=== PATIENT | female | born 1960 | race Caucasian/White ===

== ENCOUNTER 2019-09-10 09:33 | Day surgery (SDC) | payer OTHER ==
[~2019-09-10] VITALS: Ht 162.6 cm; Wt 67.6 kg
[~2019-09-10 09:33] MED LIST: CALC500C16 PO; LEVO50TA5 PO; LIDOCAINE 2% INJ 100 MG/5 ML SDV (FOR ANES.) As Ordered ONE; MULTCAP PO; NS 1,000 ML IV ONE; PROBCAP14 PO; propofoL 500 MG/50 ML VIAL As Ordered ONE
--- NOTE | 2019-09-10 11:20 | ROOR ---
Patient Name: Cesilia Car Procedure Date: 09/10/2019 10:45 AM Date of : 1960 Age: 59 Room: [facility] Gender: Female Note Status: Finalized Procedure: Colonoscopy Indications: Screening for colorectal malignant neoplasm Providers: Ze Jimenes MD Referring MD: Madalyn Robertson NP Requesting Provider: Medicines: Monitored Anesthesia Care Complications: No immediate complications. Procedure: Pre-Anesthesia Assessment: - Prior to the procedure, a History and Physical was performed, and patient medications and allergies were reviewed. The patient is competent. The risks and benefits of the procedure and the sedation options and risks were discussed with the patient. All questions were answered and informed consent was obtained. Patient identification and proposed procedure were verified by the physician, the nurse and the anesthesiologist in the procedure room. Mental Status Examination: alert and oriented. Airway Examination: normal oropharyngeal airway and neck mobility. Respiratory Examination: clear to auscultation. CV Examination: normal. Prophylactic Antibiotics: The patient does not require prophylactic antibiotics. Prior Anticoagulants: The patient has taken no previous anticoagulant or antiplatelet agents. ASA Grade Assessment: II - A patient with mild systemic disease. After reviewing the risks and benefits, the patient was deemed in satisfactory condition to undergo the procedure. The anesthesia plan was to use monitored anesthesia care (MAC). Immediately prior to administration of medications, the patient was re-assessed for adequacy to receive sedatives. The heart rate, respiratory rate, oxygen saturations, blood pressure, adequacy of pulmonary ventilation, and response to care were monitored throughout the procedure. The physical status of the patient was re-assessed after the procedure. The Colonoscope was introduced through the anus and advanced to the terminal ileum, with identification of the appendiceal orifice and IC valve. The colonoscopy was performed without difficulty. The patient tolerated the procedure well. The quality of the bowel preparation was good. The terminal ileum, ileocecal valve, appendiceal orifice, and rectum were photographed. Scope insertion time was 2 minutes. Scope withdrawal time was 9 minutes. The total duration of the procedure was 11 minutes. Findings: The perianal and digital rectal examinations were normal. The terminal ileum contained one 10 mm diverticulum. Two sessile polyps were found in the ascending colon. The polyps were 4 to 5 mm in size. These polyps were removed with a jumbo cold forceps. Resection and retrieval were complete. Verification of patient identification for the specimen was done by the physician and nurse using the patient's name, date and medical record number. Estimated blood loss was minimal. A few small and large-mouthed diverticula were found from sigmoid to descending colon. There was no evidence of diverticular bleeding. Non-bleeding external and internal hemorrhoids were found during retroflexion. The hemorrhoids were small. Impression: - Ileal diverticulum. - Two 4 to 5 mm polyps in the ascending colon, removed with a jumbo cold forceps. Resected and retrieved. - Mild diverticulosis from sigmoid to descending colon. There was no evidence of diverticular bleeding. - Non-bleeding external and internal hemorrhoids. Recommendation: - Patient has a contact number available for emergencies. The signs and symptoms of potential delayed complications were discussed with the patient. Return to normal activities tomorrow. Written discharge instructions were provided to the patient. - High fiber diet. - Continue present medications. - Use fiber, for example Citrucel, Fibercon, Konsyl or Metamucil. - Await pathology results. - Repeat colonoscopy in 5-10 years for surveillance based on pathology results. - Telephone GI clinic for pathology results in 2 weeks. - Return to primary care physician. Ze Jimenes MD Ze Jimenes MD 09/10/2019 11:19:46 AM Electronically signed by Ze Jimenes MD Number of Addenda: 0 Note Initiated On: 09/10/2019 10:45 AM Estimated Blood Loss: Estimated blood loss was minimal.
[2019-09-10 11:36] VITALS: BP 133/79
== END 2019-09-10 11:38 | disposition home or self-care (01) ==
LOC: M OPP 09:33
PROVIDERS: ATTEND Internal Medicine Gastroenterology
DX: Z12.11 Encounter for screening for malignant neoplasm of colon (principal); K64.8 Other hemorrhoids; D12.2 Benign neoplasm of ascending colon; K57.50 Diverticulosis of both small and large intestine without perforation or abscess without bleeding; Z79.899 Other long term (current) drug therapy

== ENCOUNTER → 2023-04-19 | Outpatient (CLI) | payer OTHER ==
[~2023-04-19] MED LIST changes: -LIDOCAINE 2% INJ 100 MG/5 ML SDV (FOR ANES.) As Ordered ONE; -NS 1,000 ML IV ONE; -propofoL 500 MG/50 ML VIAL As Ordered ONE
== END ==
LOC: M SOG 08:13
PROVIDERS: ATTEND Physician Assistant
DX: M79.644 Pain in right finger(s) (principal); Z53.8 Procedure and treatment not carried out for other reasons